=== PATIENT | female | born 1955 | race Caucasian/White ===

== ENCOUNTER 2016-11-18 10:54 | Day surgery (SDC) | payer BC ==
--- NOTE | ~2016-11-18 | EGD ---
EGD REPORT [facility] [address] [place] [address] NAME: FRANCY VAZQUEZ : 59 STATUS : REG [facility]#: [id number] AGE: 61 ADM/REG DATE : 11/18/16 MR#: [id number] REPORT SERV DATE: 11/18/16 DICTATED BY: PRIMO HERNANDEZ DATE: 11/18/16 REPORT STATUS : Draft TRANSCRIBED BY: [facility] DATE: 11/18/16 Endoscopy Center Patient Name: Francy Vazquez Date of : 1955 Attending MD: PEDRO HERNANDEZ MD Procedure Date No Time: 11/18/2016 Procedure: Colonoscopy Indications: High risk colon cancer surveillance: Personal history of colonic polyps, Last colonoscopy: May 2012 Referring MD: ADRIANA MCKEON Medicines: See the Anesthesia note for documentation of the administered medications Complications: No immediate complications. Estimated blood loss: Minimal. Procedure: Pre-Anesthesia Assessment: - ASA Grade Assessment: III - A patient with severe systemic disease. - Prior to the procedure, a History and Physical was performed, and patient medications and allergies were reviewed. The patient's tolerance of previous anesthesia was also reviewed. The risks and benefits of the procedure and the sedation options and risks were discussed with the patient. All questions were answered, and informed consent was obtained. Prior Anticoagulants: The patient has taken no previous anticoagulant or antiplatelet agents. After reviewing the risks and benefits, the patient was deemed in satisfactory condition to undergo the procedure. After I obtained informed consent, the scope was passed under direct vision. Throughout the procedure, the patient's blood pressure, pulse, and oxygen saturations were monitored continuously. The PCF [id number] was introduced through the anus and advanced to the cecum, identified by appendiceal orifice and ileocecal valve. The ileocecal valve, appendiceal orifice and rectum were photographed. The entire colon was examined. The colonoscopy was performed without difficulty. The patient tolerated the procedure well. The quality of the bowel preparation was adequate. Findings: The perianal and digital rectal examinations were normal. A sessile polyp was found in the distal transverse colon. The polyp was 3 mm in size. The polyp was removed with a cold biopsy forceps. Resection and retrieval were complete. EGD REPORT [place] [id number] [place]. [address] NAME: FRANCY VAZQUEZ : [birth year] STATUS : REG [facility]#: [id number] AGE: 61 ADM/REG DATE : 11/18/16 MR#: [id number] REPORT SERV DATE: 11/18/16 DICTATED BY: PRIMO HERNANDEZ DATE: 11/18/16 REPORT STATUS : Draft TRANSCRIBED BY: [employer] DATE: 11/18/16 A sessile polyp was found at the splenic flexure. The polyp was 6 mm in size. The polyp was removed with a cold snare. Resection and retrieval were complete. A sessile polyp was found in the sigmoid colon. The polyp was 6 mm in size. The polyp was removed with a cold snare. Resection and retrieval were complete. A few medium-mouthed diverticula were found in the sigmoid colon. Non-bleeding internal hemorrhoids were found during retroflexion and were Grade I (internal hemorrhoids that do not prolapse). No other significant abnormalities were identified in a careful examination of the remainder of the colon. Impression: - One 3 mm polyp in the distal transverse colon. Resected and retrieved. - One 6 mm polyp at the splenic flexure. Resected and retrieved. - One 6 mm polyp in the sigmoid colon. Resected and retrieved. - Diverticulosis in the sigmoid colon. - Non-bleeding internal hemorrhoids. Recommendation: - Patient has a contact number available for emergencies. The signs and symptoms of potential delayed complications were discussed with the patient. Return to normal activities tomorrow. Written discharge instructions were provided to the patient. - High fiber diet indefinitely. - Discharge patient to home. - Continue present medications. - Await pathology results. - Repeat colonoscopy in 3 years for surveillance. Procedure Code(s): --- Professional --- 84117, Colonoscopy, flexible, proximal to splenic flexure; with removal of tumor(s), polyp(s), or other lesion(s) by snare technique 56171, 59, Colonoscopy, flexible, proximal to splenic flexure; with biopsy, single or multiple Diagnosis Code(s): --- Professional --- D12.5, Benign neoplasm of sigmoid colon D12.3, Benign neoplasm of transverse colon K64.0, First degree hemorrhoids K57.30, Diverticulosis of large intestine without perforation or abscess without bleeding Z86.010, Personal history of colonic polyps EGD REPORT [facility] [address] [place]. [address] NAME: FRANCY VAZQUEZ : [birth year] STATUS : REG [facility] PAT#: [id number] AGE: 61 ADM/REG DATE : 11/18/16 MR#: [id number] REPORT SERV DATE: 11/18/16 DICTATED BY: PRIMO HERNANDEZ DATE: 11/18/16 REPORT STATUS : Draft TRANSCRIBED BY: [employer] DATE: 11/18/16 CPT copyright 2013 [employer]. All rights reserved. The codes documented in this report are preliminary and upon larder cook review may be revised to meet current compliance requirements. PEDRO HERNANDEZ MD 11/18/2016 1:13 PM This report has been signed electronically. Number of Addenda: 0 Note Initiated On: 11/18/2016 12:38 PM Scope Withdrawal Time 0 hours 20 minutes 59 seconds [id number] [place] [address]
[~2016-11-18 10:54] MED LIST: ACTIVELLA PO; C5 PO; CENTRUM PO; DIOV160 PO; DIOV80 PO; EFFEX75 PO; FLONASE NAS; GLUCOSAMINEPO; MOBIC7.5 PO; MULTIPLE VIT PO; MULTIVIT/MIN PO; OSTEO-BIFLEX PO; PCET PO; SUPER B COMP PO; TAMOXIFEN20 M1 PO; VESICARE5 PO; VITAMIN D31000 UNIT PO; ZOCOR10 PO; ZOL100 PO
[2017-01-12] MEDS ORDERED: MOBIC7.5 PO (12:26)
== END 2016-11-18 23:59 | disposition home or self-care (01) ==
LOC: DMU 10:54
PROVIDERS: Internal Medicine Gastroenterology
PROC: 0DBN8ZX Excision of Sigmoid Colon, Via Natural or Artificial Opening Endoscopic, Diagnostic (ICD-10-PCS; 2016-11-18)
PROC: 0DBL8ZX Excision of Transverse Colon, Via Natural or Artificial Opening Endoscopic, Diagnostic (ICD-10-PCS; principal; 2016-11-18 12:30)
PROC: 0DBF8ZX Excision of Right Large Intestine, Via Natural or Artificial Opening Endoscopic, Diagnostic (ICD-10-PCS; 2016-11-18 12:30)
DX: Z12.11 Encounter for screening for malignant neoplasm of colon (principal); D12.5 Benign neoplasm of sigmoid colon; D12.3 Benign neoplasm of transverse colon; K64.0 First degree hemorrhoids; K57.30 Diverticulosis of large intestine without perforation or abscess without bleeding; G47.33 Obstructive sleep apnea (adult) (pediatric); F41.9 Anxiety disorder, unspecified; I10 Essential (primary) hypertension; Z86.010 Personal history of colon polyps; Z85.3 Personal history of malignant neoplasm of breast; Z99.81 Dependence on supplemental oxygen
CPT/HCPCS: 88305